=== PATIENT | male | born 1990 | race Caucasian/White ===

== ENCOUNTER 2023-09-02 20:38 | Emergency (ER) | payer OTHER, SELFPAY ==
[2023-09-02 20:42] VITALS: BP 152/84; PULSE 93; RESP 14; TEMP 36.7; O2SAT 99; BMI 29.3
--- NOTE | 2023-09-02 20:50 | CTR_ITS ---
PROCEDURE INFORMATION: Exam: CT Maxillofacial Without Contrast Exam date and time: 09/02/2023 9:05 PM Age: 33 years old Clinical indication: Injury or trauma; Blunt trauma (contusions or hematomas); Cheek bone; Patient HX: Hit is face awhile playing basketball on Friday. Feels like his right cheekbone is floating ang his tooth is loose. TECHNIQUE: Imaging protocol: Computed tomography of the face without contrast. Radiation optimization: All CT scans at this facility use at least one of these dose optimization techniques: automated exposure control; mA and/or kV adjustment per patient size (includes targeted exams where dose is matched to clinical indication); or iterative reconstruction. REPORTING DATA: Count of CT and Cardiac NM exams in prior 12 months: This patient has received 0 known CTs and 0 known cardiac nuclear medicine studies in the 12 months prior to the current study. COMPARISON: No relevant prior studies available. RADIATION DOSE METRICS: Total DLP (mGy-cm): 755.98 FINDINGS: Orbital cavities: Globes are intact. Retrobulbar fat is preserved. Bones/joints: Age-indeterminate left nasal bone fracture. Acute minimally displaced fracture of the inferior aspect of the right lateral orbital rim. Paranasal sinuses: Acute mildly displaced segmental fractures of the posterolateral wall the right maxillary sinus. The more anterior fracture extends to the root of the right maxillary 2nd molar, series 6, image 48. Soft tissues: No large hematoma. 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 CT/CT facial bones wo con* [id number] IMPRESSION: 1. Acute minimally displaced fracture of the inferior aspect of the right orbital rim. 2. Acute mildly displaced fractures of the right maxillary sinus posterolateral wall with fracture extending to the root of the right maxillary 2nd molar. 3. Age-indeterminate left nasal bone fracture.
--- NOTE | 2023-09-02 21:05 | ED_ITS ---
HPI - General Adult General: Chief complaint: Eye Problems Stated complaint: right eye injury Time Seen by Provider: 09/02/23 20:40 Source: patient Mode of arrival: ambulatory Limitations: no limitations History of Present Illness: 33-year-old male he is playing basketsmartclip on Friday states that cleared raised up and head butted him in his right cheek he had swelling in his right cheek along with pain when he opens his mouth he is concerned he may have a peptic fracture. He states he had had some blurry vision but that is improved denies any eye pain to me Associated symptoms: Deny chest pain, dyspnea, headache(s), nausea, rash or vomiting Review of Systems Const: Denies: fever(s), chills, body aches or change in appetite Eyes: Reports: eye discomfort; Denies: blurry vision ENMT: Denies: throat pain or dental pain Card: Denies: chest pain Resp: Denies: dyspnea GI: Denies: abdominal pain, nausea, vomiting or diarrhea Musc: Denies: neck pain or back pain Skin/Breast: Denies: rash Neuro: Denies: headache(s) Physical Exam Const: COMMON NORMALS: no acute distress, patient oriented x3 and healthy appearing HENMT: COMMON NORMALS: normocephalic and atraumatic HEAD & SCALP: normocephalic and atraumatic OTHER: Tenderness over right cheekbone Eye: COMMON NORMALS: Equal, round and reactive pupils present, EOMs intact bilaterally and conjunctivae normal CONJUNCTIVA: Yes conjunctivae normal PUPIL: Yes Equal, round and reactive pupils present Neck/C-Spine: COMMON NORMALS: full ROM and supple Chest: COMMONS NORMALS: normal inspection of the chest and normal palpation of entire chest wall Resp: COMMON NORMALS: normal respiratory effort Cardio: COMMON NORMALS: No murmurs present (Cardio) GI: INSPECTION: Yes normal to inspection Extremity: COMMON NORMALS: normal to inspection Neuro: COMMON NORMALS: patient oriented x3, moves all extremities and no focal motor deficits Psych: COMMON NORMALS: mental status grossly normal Skin: COMMON NORMALS: no rashes or lesions noted GENERAL SKIN EXAM: no rashes or lesions noted Course Vital Signs: Vital signs: Vital Signs Temperature 98.1 F 09/02/23 20:42 Pulse Rate 93 09/02/23 20:42 Respiratory Rate 14 09/02/23 20:42 Blood Pressure 152/84 09/02/23 20:42 Pulse Oximetry 99 09/02/23 20:42 Oxygen Delivery Me thod Room Air 09/02/23 20:42 MDM - General Adult Medical Decision Making Patient presents here with facial fractures did inform him he needs to follow-up with ENT he is to not blow his nose we will start him on Keflex he has no signs of entrapment no vision deficits here he is stable for discharge return if worsening Medical Records I reviewed the patient's medical records. Lab Data Radiology Impressions Face CT 09/02/23 20:50 IMPRESSION: 1. Acute minimally displaced fracture of the inferior aspect of the right orbital rim. 2. Acute mildly displaced fractures of the right maxillary sinus posterolateral wall with fracture extending to the root of the right maxillary 2nd molar. 3. Age-indeterminate left nasal bone fracture. All radiology interpretation(s) finalized by discharge Discharge Plan Discharge Patient Disposition: Home Clinical Impression: Facial fracture Qualifiers: Encounter type: initial encounter Fracture type: closed Laterality: right Condition: Stable Prescriptions: New cephalexin 500 mg capsule 500 mg PO TID 7 Days Qty: 21 0RF Discharge Orders: Discharge ED (Routine); Ordered 09/02/23 Ordered By: Shawn Arias Discharge Diet: Advance as tolerated Discharge Activity: Resume usual activity Patient Instructions: Facial Fracture (ED) Coding Level of Care Code ED Machine Repairman for Leopoldo Zendejas
[2023-09-02 22:10] VITALS: RESP 16; TEMP 36.8; O2SAT 98
--- NOTE | 2023-09-03 09:15 | DCPLANNER ---
Message was sent to ENT for follow -up for facial fracture-Ángel-
== END 2023-09-02 22:11 | disposition home or self-care (01) ==
PROVIDERS: Emergency Provider Emergency Medicine
DX: S02.85XA Fracture of orbit, unspecified, initial encounter for closed fracture (principal); S02.40CA Maxillary fracture, right side, initial encounter for closed fracture; S02.2XXA Fracture of nasal bones, initial encounter for closed fracture; W50.0XXA Accidental hit or strike by another person, initial encounter; Y93.67 Activity, basketball
CPT/HCPCS: 70486; 99284